=== PATIENT | female | born 2000 | race Caucasian/White ===

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

== ENCOUNTER 2020-01-09 18:06 | Emergency (ER) | payer OTHER ==
[~2020-01-09] VITALS: Ht 157.5 cm; Wt 80.7 kg
[2020-01-09 18:15] VITALS: BP 146/95; Ht 157.5 cm; Wt 80.7 kg
== END 2020-01-09 19:31 | disposition home or self-care (01) ==
LOC: ED 18:06
DX: R07.89 Other chest pain (principal); R05 Cough; R10.9 Unspecified abdominal pain; R11.10 Vomiting, unspecified
CPT/HCPCS: J1885